=== PATIENT | male | born 1995 ===

== ENCOUNTER 2020-02-19 09:31 | Emergency (ER) | payer SELFPAY ==
[~2020-02-19] VITALS: Ht 167.6 cm; Wt 83.9 kg
[2020-02-19] MEDS ORDERED: DOPamine 1600mCg/ml 400MG/250ml NSorD5 KIT/BAG IV ONE (09:32)
[2020-02-19] MEDS ORDERED: EPINEPHrine HCL 1 MG/10 ML SYRG IV ONE (09:32)
[2020-02-19] MEDS ORDERED: NALOXONE HCL 1MG/ML 2ML SYRINGE IV ONE (09:32)
[2020-02-19] MEDS ORDERED: SODIUM BICARBONATE 8.4% INJ 50ML SYRINGE IV ONE (09:32)
[2020-02-19] MEDS ORDERED: NOREPINEPHRINE 8 MG/250ML KIT 250 ML IV ONE ×2 (09:55→10:29)
[2020-02-19] MEDS ORDERED: SODIUM BICARBONATE 8.4% INJ 50ML SYRINGE ONE (10:05)
[2020-02-19 10:19] VITALS: BP 100/38
[2020-02-19] MEDS ORDERED: DOPamine 1600MCG/ML D5W 250 ML IV ONE (10:29)
== END 2020-02-19 12:04 | disposition short-term general hospital (02) ==
LOC: EDBD 09:31 → ER 09:31
DX: S01.93XA Puncture wound without foreign body of unspecified part of head, initial encounter (principal); I46.9 Cardiac arrest, cause unspecified; W34.00XA Accidental discharge from unspecified firearms or gun, initial encounter; Y93.89 Activity, other specified; Y92.89 Other specified places as the place of occurrence of the external cause; Y99.8 Other external cause status
CPT/HCPCS: 31500; 36556; 92950; 99291; J0171; J1265; J2310